=== PATIENT | female | born 1940 | race Caucasian/White ===

== ENCOUNTER → 2017-05-21 | Outpatient (CLI) | payer MEDICARE, BC ==
--- NOTE | 2017-05-22 08:58 | RADRPT ---
PROCEDURE: XR pelvis and right hip. CLINICAL INDICATION: PAIN TECHNIQUE: AP pelvis, AP and frog lateral views of the right hip were performed. COMPARISON: None. FINDINGS: There is decreased osseous mineralization and normal alignment. No acute fracture or osseous lesion is identified. There are severe degenerative changes involving the right hip joint including joint space narrowing, osteophytes, subchondral sclerosis, subchondral cysts, and bone on bone contact. A total left hip prosthesis is noted in near anatomic alignment without evidence of hardware looseni ng. Surgical clips are identified projecting over bilateral inguinal regions. RPTAT: AA IMPRESSION: Severe degenerative changes involving the right hip joint. Total left hip prosthesis in near anatomic alignment. Osseous demineralization. Physician Mary Jo Date Time Electronically viewed and signed by Physician Mary Jo on 05/22/2017 08:57 /
--- NOTE | 2017-05-22 09:04 | RADRPT ---
PROCEDURE: LEFT KNEE X-RAY CLINICAL INDICATION: PAIN TECHNIQUE: AP, lateral, and oblique views of the knee were obtained. COMPARISON: None FINDINGS: No acute fracture or dislocation is seen. There is normal mineralization. Moderate narrowing of the medial compartment is noted. There is no joint effusion. There is no significant soft tissue swelling. IMPRESSION: Moderate narrowing of the medial compartment. RPTAT: EE Physician Mary Jo Date Time Electronically viewed and signed by Manan Bradford Physician on 05/22/2017 09:04 /
--- NOTE | 2017-07-10 06:18 | HKNOTE ---
DATE OF SERVICE: 05/21/2017 [place] [id number] [facility] [address] [place] [address] Dear Don: Thank you for referring Julia Sommer who was seen in my office on a 05/21/2017. She has extremely severe degenerative osteoarthritis of the right hip and is in imminent need of right hip replacement. She has quite severe arthritis of her left knee and will need to have a knee replacement sometime in the future. Today, she was treated conservatively with cortisone injection into both the knee and the hip. Enclosed is a copy of my office notes for your records. With warmest regards, Dictated By: Joshua Chandler MD /tigist/jaqueline /Document#: [id number]
--- NOTE | 2017-07-10 06:18 | HKNOTE ---
DATE OF SERVICE: 05/21/2017 MAIN COMPLAINT: 1. Pain in the right hip. 2. Pain in the left knee. HISTORY OF MAIN COMPLAINT: The patient is a 76-year-old female, who complains of pain in the right hip and in the left knee. The left knee pain is the more recent and the one that causes her more pain. The patient also complains of pain in the right hip. The patient had undergone a left total hip by Dr. Block in 2012. The left leg was longer than the right before surgery, and he could not shorten the leg. She now gets pain in the right groin. The right ankle was fused by Dr. Lane in 2004. She has no pain or problems with the ankle. The main complaints are the right knee swells. There is no instability and no locking. The hip pain has been present for three months. Hip pain is described as being moderately severe. The knee pain is aggravated with walking and stair climbing. She is not taking any medications for pain. She does have a history of problems with the lower back. She has not had any treatment other than applying local heat. She sometimes gets tingling in the legs. On a level surface, she can walk as far she likes but with some pain in the hip and knee. She does not use a walking aid. She does not limp. The right leg is half to one inch shorter than the left leg. She does not have a shoe lift. It is difficult for her to clip her toenails on the right side. Hobbies: Yard work which is difficult to do because she can't squat. PAST ORTHOPEDIC HISTORY: 1982, compound fracture of the right tibia on the right medial malleolus (surgery in [facility]). 1982, revision surgery to the right medial malleolus by Dr. Johnson. 2004, ankle fusion by Dr. Lane. 2012, left hip replacement, [facility], Dr. Block. PRIOR CORTISONE INTAKE: The patient has had cortisone injections into her ankle and her hip before she finally underwent surgeries. ALCOHOL INTAKE: 1-2 drinks every 10 days. JOINT PROBLEMS: Knees. BLOOD TESTS FOR ARTHRITIS: Yes (patient thinks she had an "elevated KARENA." She was told she has arthritis of unknown etiology. She was also told that she does not have rheumatoid arthritis. 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 She had to "excessive walking." PAST SURGICAL HISTORY: Tonsils and adenoids removed 194. Orthopedic surgeries as noted above. Abdominal hysterectomy by Dr. Graham Santos in any way,1988. DRUG ALLERGIES: Bactrim which causes a rash on her arms. MEDICATIONS: 1. Synthroid. 2. Crestor. 3. Inderal. 4. Topamax. 5. Imitrex. 6. Centrum. 7. Vitamin C. 8. Calcium. 9. Vitamin B12. 10. Vitamin D. 11. [place]-3. 12. Cranberry juice. FAMILY HISTORY: Father at 72 of heart problem. Mother, age 83, alive and has Alzheimer disease. SYSTEMS REVIEW: Severe migraines. Skipping heartbeats. Heartburn. Varicose veins. Swelling of the ankles. Tingling sensations in her hands and feet. SOCIAL HISTORY: The patient has never smoked. Alcohol intake: 1 ounce every 5-10 days or so. HUMAN RESOURCE PROFESSIONAL: Dr. Arsh Lackey, [address] [place] [address], [id number] [id number]. PHYSICAL EXAMINATION: On physical examination, patient is a fairly-fit looking 76-year-old female. Height 5 foot 3. Weight 148 pounds. Blood pressure 140/65, temperature 98.1. The patient walks without a walking aid. Examination of the right hip: Flexion 95 degrees. External rotation 35 degrees. Internal rotation -10 degrees. Abduction 30 degrees, adduction 20 degrees, external rotation contracture 10 degrees. Quite severe pain at all limits of motion. Examination the left hip: A full range of motion without pain. Examination of the right knee: Varus alignment. Extension is full. Flexion to 95 degrees (markedly painful). 2+ effusion. 3+ crepitus in the knee and the patella. All ligaments are intact. IMAGING: X-rays of the pelvis and hips obtained today were reviewed (3 views). The left hip shows components of a total hip replacement. All components are well aligned and well attached. The right hip seen on the same imaging x-ray show exceedingly severe degenerative osteoarthritis of the hip with total bone-on- bone loss, subchondral sclerosis, intraosseous osteophyte formation. Imaging on the right knee (3 views) show moderate narrowing of the medial compartment as well as lateral compartment of the knee. The patellofemoral joint is almost normal. DIAGNOSIS: 1. Exceedingly severe degenerative osteoarthritis of the left hip (symptomatic). 2. Mild degenerative osteoarthritis of the right knee. 3. Hypothyroidism. 4. Hypercholesterolemia. MANAGEMENT: 1. The patient is advised that she most certainly will need to have a right hip replacement in the relatively near future. The surgery and some of the major possible complications were discussed with her in a fair amount of detail. 2. The patient indicates that her postoperative recovery from her left hip replacement was not particularly difficult. 3. For now, she is being treated conservatively with cortisone injections. Today, she was given injection of 2 cc of Kenalog and 5 cc of 2 percent lidocaine into the right hip joint. 4. A similar combination of medication was injected into her left knee. 5. The patient will be seen again as necessary for reinjection if she so wishes. She cannot have the injections more frequently than every three months. She will call if and when she wishes to have repeat injections into either joint. 6. Alternatively, she will call to schedule either hip or knee replacement. My recommendation would be to proceed with the right hip first. Dictated By: Joshua Chandler MD /tigist/jaqueline /Document#: [id number]
== END | disposition home or self-care (01) ==
LOC: HKI 14:48
DX: M16.11 Unilateral primary osteoarthritis, right hip (principal); M13.862 Other specified arthritis, left knee; M25.562 Pain in left knee; E03.9 Hypothyroidism, unspecified; E78.00 Pure hypercholesterolemia, unspecified; Z96.642 Presence of left artificial hip joint
CPT/HCPCS: 20610; 73502; 73562; G0463